=== PATIENT | female | born 1990 | race Caucasian/White ===

== ENCOUNTER 2016-06-22 18:23 | Emergency (ER) | payer OTHER ==
[~2016-06-22] VITALS: Ht 157.5 cm; Wt 63.0 kg
[2016-06-22 19:10] VITALS: Ht 157.5 cm; Wt 63.0 kg
[2016-06-22] MEDS ORDERED: SOD CHLORIDE 0.9% 500 ML IV STA (20:54)
[2016-06-22] MEDS ORDERED: morphine 4 MG/ML VIAL IV STA (20:54)
[2016-06-22] MEDS ORDERED: ONDANSETRON 4 MG INJ IV STA (20:54)
[2016-06-22] MEDS ORDERED: BENA20TA48 PO (21:31)
[2016-06-22] MEDS ORDERED: RANI150T9 PO (21:32)
[2016-06-22 22:19] LABS: ADD SCAN DIFF NO
[2016-06-22 22:21] LABS: BASOPHILS % 0.2 % (0.0-2.0); EOSINOPHILS # 0.2 10^3/ul (0.0-0.5); EOSINOPHILS % 2.6 % (0.0-7.0); HEMOGLOBIN 11.2 g/dl (12.0-16.0); LYMPHOCYTES # 2.5 10^3/ul (0.8-2.9); LYMPHOCYTES % 27.8 % (15.0-51.0); MEAN CORPUSCULAR HGB CONC 31.1 g/dl (32.0-37.0); MEAN CORPUSCULAR VOLUME 70.9 fl (82.0-101.0); MEAN PLATELET VOLUME 9.9 fl (7.4-10.4); MONOCYTE # 0.7 10^3/ul (0.3-0.9); MONOCYTES % 7.6 % (0.0-11.0); NEUTROPHIL # 5.4 10^3/ul (1.6-7.5); NEUTROPHILS % 61.5 % (39.0-77.0); PLATELET COUNT 284 10^3/UL (140-415); RED BLOOD COUNT 5.08 10^6/ul (4.20-5.40); RED CELL DISTRIBUTION WIDTH 16.3 % (11.5-14.5); WHITE BLOOD COUNT 8.8 10^3/ul (4.8-10.8)
[2016-06-22 22:30] LABS: ALBUMIN 4.5 g/dl (3.3-4.9)
[2016-06-22 22:32] LABS: BILIRUBIN,INDIRECT 0.3 mg/dl (0-1.1); BILIRUBIN,TOTAL 0.3 mg/dl (0.2-1.3); CREATININE 0.6 mg/dl (0.44-1.00)
[2016-06-22 22:33] LABS: ALBUMIN/GLOBULIN RATIO 1.45; CALCIUM 9.5 mg/dl (8.4-10.2); TOTAL PROTEIN 7.6 g/dl (6.1-8.1)
[2016-06-22 22:36] LABS: ADD UMIC NO; URINE BILIRUBIN (Dip) NEGATIVE (NEGATIVE); URINE BLOOD (Dip) NEGATIVE (NEGATIVE); URINE COLOR LT. YELLOW (YELLOW); URINE GLUCOSE (Dip) NEGATIVE (NEGATIVE); URINE KETONES (Dip) NEGATIVE (NEGATIVE); URINE LEUKOCYTE ESTERASE (Dip) NEGATIVE (NEGATIVE); URINE NITRITE (Dip) NEGATIVE (NEGATIVE); URINE TOTAL PROTEIN (Dip) NEGATIVE (NEGATIVE); URINE UROBILINOGEN (Dip) 0.2 E.U./dL (0.1-1.0)
[2016-06-22] MEDS ORDERED: IOHEXOL 300MG/ML 150 ML BTL ONE (23:10)
[2016-06-22] MEDS ORDERED: SOD CHLORIDE 0.9% 100 ML ONE (23:10)
--- NOTE | 2016-06-22 23:12 | ERD ---
ER Documentation Chief Complaint Date/Time DATE: 06/22/16 TIME: 23:06 Chief Complaint sp appendectomy on 05/28/16 c/o of abdpain x 4 days HPI 25-year-old female with a history of hypertension presenting with left-sided abdominal pain. Patient had a appendectomy on May 28, 2016 and was doing well after her surgery until about 3 days ago when she started developing left-sided abdominal pain radiating to the right side and the lower back. She describes as a stabbing, pressure-like pain, constant, worse with any type of movement or ambulation, improves with remaining still. She has had associated subjective fevers and chills. She endorses nausea with one episode of vomiting that was nonbloody and nonbilious yesterday. She has been able to tolerate fluids today. She denies any associated diarrhea or constipation. No hematochezia or melena. She does endorse some burning with urination. ROS All systems reviewed and are negative except as per history of present illness. Medications Home Meds Reported Medications Ranitidine Hcl* (Zantac*) 150 Mg Tablet, 150 MG PO BID, #60 TAB 06/22/16 Benazepril Hcl* (Benazepril Hcl*) 20 Mg Tablet, 20 MG PO DAILY, #30 TAB 06/22/16 Allergies Allergies: Coded Allergies: No Known Drug Allergies (Verified Allergy, Unknown, 06/22/16) PMhx/Soc History of Surgery: Yes (Appendectomy) Anesthesia Reaction: No Hx Neurological Disorder: No Hx Respiratory Disorders: No Hx Cardiac Disorders: Yes (HIGH CHOLESTEROL) Hx Psychiatric Problems: No Hx Miscellaneous Medical Probl: No Hx Alcohol Use: No Hx Substance Use: No Hx Tobacco Use: No FmHx Family History: No diabetes Physical Exam Vitals Vital Signs Date Time Temp Pulse Resp B/P Pulse Ox O2 Delivery O2 Flow Rate FiO2 06/22/16 19:10 99.0 76 20 148/84 99 Physical Exam Const: No apparent distress, nontoxic, well-appearing Head: Atraumatic Eyes: Normal Conjunctiva ENT: Normal External Ears, Nose and Mouth. Neck: Full range of motion..~ No meningismus. Resp: Clear to auscultation bilaterally Cardio: Regular rate and rhythm, no murmurs Abd: Soft, tender to palpation in left lower quadrant more than the right lower quadrant, no rebound or guarding, non distended. No peritoneal signs. Hyperactive bowel sounds Skin: No petechiae or rashes Back: No midline or flank tenderness Ext: No cyanosis, or edema Neur: Awake and alert Psych: Normal Mood and Affect Result Diagram: 06/22/160 Results 24 hrs Laboratory Tests Test 06/22/16 21:30 White Blood Count 8.810^3/ul Red Blood Count 5.0810^6/ul Hemoglobin 11.2g/dl Hematocrit 36.0% Mean Corpuscular Volume 70.9fl Mean Corpuscular Hemoglobin 22.0pg Mean Corpuscular Hemoglobin Concent 31.1g/dl Red Cell Distribution Width 16.3% Platelet Count 54626^3/UL Mean Platelet Volume 9.9fl Neutrophils % 61.5% Lymphocytes % 27.8% Monocytes % 7.6% Eosinophils % 2.6% Basophils % 0.2% Nucleated Red Blood Cells % 0.0/100WBC Neutrophils # 5.410^3/ul Lymphocytes # 2.510^3/ul Monocytes # 0.710^3/ul Eosinophils # 0.210^3/ul Basophils # 0.010^3/ul Nucleated Red Blood Cells # 0.010^3/ul Urine Color LT. YELLOW Urine Clarity CLEAR Urine pH 6.0 Urine Specific [place] 1.025 Urine Ketones NEGATIVE Urine Nitrite NEGATIVE Urine Bilirubin NEGATIVE Urine Urobilinogen 0.2 E.U./dL Urine Leukocyte Esterase NEGATIVE Urine Hemoglobin NEGATIVE Urine Glucose NEGATIVE% Urine Total Protein NEGATIVE Serum HCG, Qualitative NEGATIVE Current Medications Medications (Trade) Dose Ordered Sig/Jose Ramon Route PRN Reason Start Time Stop Time Status Last Admin Dose Admin Sodium Chloride (NS) 500 ml @ 500 mls/hr Q1H STAT IV 06/22/16 20:54 06/22/16 21:53 DC 06/22/16 21:37 Morphine Sulfate (morphine) 4 mg ONCE STAT IV 06/22/16 20:54 06/22/16 20:56 DC 06/22/16 21:37 Ondansetron HCl (Zofran Inj) 4 mg ONCE STAT IV 06/22/16 20:54 06/22/16 20:56 DC 06/22/16 21:36 Procedures/MDM EMERGENT LABS AND DIAGNOSTIC STUDIES: Lab Results above were reviewed and interpreted by me. CBC was unremarkable without leukocytosis BMP is pending was negative Urinalysis was negative Radiology Results as interpreted by Radiology below were reviewed by Natalie Hinds MD: CT abdomen and pelvis with IV contrast is pending Initial Nursing notes reviewed. Previous Medical Records requested via the Electronic Health Record. EMERGENCY DEPARTMENT COURSE / MEDICAL DECISION MAKING: Patient is presenting with left lower quadrant abdominal pain status post appendectomy 3 weeks ago. Her vitals here are within normal limits and she is afebrile. Differential includes but is not limited to bowel obstruction, postop infection, colitis, diverticulitis. Unlikely volvulus or aortic dissection. Labs did not show any acute abnormalities. There is no evidence of a UTI. CT abdomen and pelvis was ordered with IV contrast and was pending at the end of my shift. The patient was signed out to Dr. Pineda, who will follow up on the CT results and decide on the final plan for the patient. Departure Diagnosis: Primary Impression: Abdominal pain Abdominal location: lower abdomen, unspecified Qualified Code: R10.30 - Lower abdominal pain Condition: TENNILLE Jesus MD Jun 22, 2016 23:12
--- NOTE | 2016-06-22 23:52 | RADRPT ---
PROCEDURE: CT abdomen and pelvis with contrast. CLINICAL INDICATION: Left lower quadrant abdominal pain, appendectomy 05/28/2016. TECHNIQUE: CT scan of the abdomen and pelvis with contrast was performed. Coronal and sagittal im ages were also reformatted. 80 cc Omnipaque-300 intravenous contrast was administered without compl ication. Total exam CTDIvol = 7.86 mGy and DLP = 394.11 mGy-cm. COMPARISON: CT of 07/12/2014 FINDINGS: Visualized lower thorax: Minimal dependent posterior left greater than right lower lobe subsegmental atelectasis. There is no evidence for pleural effusion. Liver, gallbladder, pancreas and spleen: Normal hepatic contour, attenuation in size. There is no evidence for liver mass or ductal dilatation. The gallbladder is unremarkable. No common bile duct dilatation is evident. The pancreas is normal. The spleen is normal, not enlarged. Adrenal glands and genitourinary system: The adrenal glands are normal bilaterally. The kidneys ar e normal in size, contour and attenuation with no evidence for masses, calculi or hydronephrosis. T he ureters are unremarkable. The urinary bladder shows no abnormality. Small bilateral ovarian fol licles are demonstrated. There is no free fluid in the cul-de-sac. The uterus shows no abnormality . Gastrointestinal system: The stomach, small bowel and large intestine are normal in caliber. There is no evidence of obstruction, ileus or inflammation. Postoperative changes consistent with the pr ovided history of appendectomy are noted, no abscess is present. A normal amount of fecal debris is present within the colon and there is no wall thickening to suggest colitis. A few diverticula throu ghout the colon are noted. Peritoneum, retroperitoneum, vessels and lymph nodes: The abdominal aorta is normal in caliber. No pneumoperitoneum is seen. Inferior vena cava is normal in caliber. Slightly prominent small bowel mesenteric lymph nodes similar to the prior CT are again noted most obvious in the right lower quad rant and with a short axis measuring up to 7 mm. The peritoneal cavity is normal with no evidence f or ascites. No pneumoperitoneum is present Osseous structures and musculoskeletal system: There is no evidence for acute osseous abnormality o r muscular pathology. No subcutaneous abnormalities are present. RPTAT:HJJR IMPRESSION: 1. Changes of appendectomy without evidence of abscess or free fluid. 2. Slightly prominent nonspecific small bowel mesenteric lymph nodes are similar to the prior study of 07/12/2014 unable to exclude adenitis. 3. A few diverticula of the colon are now evident but there is no evidence of diverticulitis. 4. Small bilateral ovarian follicles. Xander Blanco, Physician Date Time Electronically viewed and signed by Xander Blanco, Physician on 06/22/2016 23:51 /
[2016-06-23] MEDS ORDERED: HYDR-906 PO (01:21)
[2016-06-23] MEDS ORDERED: ONDA4TAB8 PO (01:22)
[2016-06-23 02:09] VITALS: BP 129/68; PULSE 62; RESP 16; TEMP 98.2
== END 2016-06-23 02:10 | disposition home or self-care (01) ==
LOC: E/R 18:23
DX: G89.18 Other acute postprocedural pain (principal); R40.2142 Coma scale, eyes open, spontaneous, at arrival to emergency department; R10.30 Lower abdominal pain, unspecified; R40.2362 Coma scale, best motor response, obeys commands, at arrival to emergency department; R40.2252 Coma scale, best verbal response, oriented, at arrival to emergency department
CPT/HCPCS: 74177; 80053; 81003; 84703; 85025; 87086; J2270; J2405; J7040; Q9967; Z7610; 36415; 96374; 96375